=== PATIENT | male | born 1995 | race Two or more races ===

== ENCOUNTER 2020-07-07 07:14 | Emergency (ER) | payer SELFPAY ==
[2020-07-07 08:20] LABS: BASOPHIL 0.3 % (0-2); EOSINOPHIL 0.3 % (0-5); HCT 45.2 % (42.0-52.0); HGB 15.9 g/dl (13.2-18.0); LYMPHOCYTE 8.5 % (15-48); MCH 30.1 pg (25.0-31.0); MCHC 35.2 g/dL (32.0-36.0); MCV 85.4 fL (78.0-100.0); MONOCYTE 3.9 % (0-12); NEUTROPHIL 86.7 % (41-80); NRBC 0; PLT 208 K/uL (150-400); RBC 5.29 M/uL (4.70-6.00); RDW 11.9 % (11.5-14.0)
[2020-07-07 08:38] LABS: ALBUMIN 4.2 g/dL (3.4-5.0); BILIRUBIN - TOTAL 0.7 mg/dL (0.2-1.0); BUN/CREAT RATIO (CALC) 20.5 RATIO; CREATININE 0.78 mg/dL (0.67-1.17); GLOBULIN (CALCULATION) 3.2 g/dL; POTASSIUM 3.8 mmol/L (3.5-5.1); TOTAL PROTEIN 7.4 g/dL (6.4-8.2)
[2020-07-07 08:58] LABS: BILIRUBIN NEGATIVE (NEGATIVE); BLOOD NEGATIVE Ery/uL (NEGATIVE); COLOR YELLOW (YELLOW); GLUCOSE (U) NORMAL (NORMAL); LEUKOCYTES NEGATIVE Leu/uL (NEGATIVE); NITRITE NEGATIVE (NEGATIVE); PROTEIN NEGATIVE (NEGATIVE); UROBILINOGEN 0.2 mg/dL (0.2-1.0)
[2020-07-07 09:05] LABS: CLARITY HAZY (CLEAR)
[2020-07-07] MEDS ORDERED: MIRALAX17 GM PO (09:31)
== END 2020-07-07 10:00 | disposition home or self-care (01) ==
LOC: FER 07:14
PROVIDERS: Emergency Medicine
DX: K59.00 Constipation, unspecified (principal); R11.2 Nausea with vomiting, unspecified
CPT/HCPCS: 36415; 74022; 80053; 81003; 83690; 85025; J2405